=== PATIENT | male | born 1975 | race Caucasian/White ===

== ENCOUNTER → 2018-12-04 | Outpatient (CLI) | payer OTHER | LOC: RAD 10:07 | DX: M54.5 Low back pain (principal) ==

== ENCOUNTER → 2021-05-13 | Outpatient (CLI) | payer BC, OTHER | LOC: ULTRA 10:14 | PROVIDERS: ATTEND Nurse Practitioner | DX: K76.0 Fatty (change of) liver, not elsewhere classified (principal); R10.11 Right upper quadrant pain ==

== ENCOUNTER → 2021-06-28 | Outpatient (CLI) | payer BC, OTHER | LOC: NUC 07:29 | PROVIDERS: ATTEND Nurse Practitioner | DX: K76.1 Chronic passive congestion of liver (principal) ==